=== PATIENT | male | born 1995 | race Caucasian/White ===

== ENCOUNTER 2016-11-02 03:22 | Emergency (ER) | payer BC, OTHER ==
--- NOTE | 2016-11-02 03:33 | EDPHY ---
H & P Stated Complaint: fall into pillar lat to r eyebrow HPI/ROS: HPI CHIEF COMPLAINT: Alcohol Intoxication, head laceration HISTORY OF PRESENT ILLNESS: This patient very pleasant 21-year-old male, he has been drinking alcohol this evening, he tells me he had 8 beers and 1 shot of liquor, tells me was intoxicated however much more sober nail he fell into the corner of a wall striking his right eyebrow/head against the edge of the pillar. He denies headache. Denies vomiting. He sustained a right eyebrow laceration. He does tell me his tetanus shot is up-to-date. Denies any other areas of trauma specifically neck pain. Denies LOC. Past Medical History: Denies significant medical history Past Surgical History: Denies significant surgical history Social History: [employer] student, occasional alcohol use, denies drugs or tobacco products Family History: Noncontributory ROS REVIEW OF SYSTEMS: A comprehensive 10 point review of systems is otherwise negative aside from elements mentioned in the history of present illness. Exam Constitutional triage nursing summary reviewed, vital signs reviewed, smells of alcohol Eyes normal conjunctivae and sclera, horizontal beating nystagmus consistent acute alcohol intoxication, otherwise pupils equal and react to light HENT head/neck: 6cm horizontally oriented eyebrow laceration right eyebrow, midface stable, no crepitus, orbital rim intact, no midline neck pain,, moist mucus membranes, no epistaxis, neck supple/ no meningismus, no raccoon eyes. Respiratory clear to auscultation bilaterally, normal breath sounds, no respiratory distress, no wheezing. Cardiovascular rate normal, regular rhythm, no murmur, no edema, distal pulses normal. Gastrointestinal soft, non-tender, no rebound, no guarding, normal bowel sounds, no distension, no pulsatile mass. Genitourinary no CVA tenderness. Musculoskeletal no midline vertebral tenderness, full range of motion, no calf swelling, no tenderness of extremities, no meningismus, good pulses, neurovascularly intact. Skin pink, warm, & dry, no rash, skin atraumatic. Neurologic sleepy, intoxicated with alcohol,, alert and oriented x 3, AAOx3, moves all 4 extremities equally, motor intact, sensory intact, CN II-XII intact , , normal vision, normal speech. Psychiatric normal mood/affect. Heme/Lymph/Immune no lymphadenopathy. Differential Diagnosis: Includes but is not limited to in a particular alcohol intoxication, facial laceration specifically right eyebrow laceration, head trauma, concussion, closed-head injury, intracranial bleed, skull fracture, facial fracture Medical Decision Making: This patient will have a CT scan of his head to rule out significant trauma given alcohol intoxication and large eyebrow laceration. The eyebrow laceration will need to be repaired. Re-evaluation: CT scan of the head without contrast for trauma The results of the study are negative for anything acute The study was read by Dr. Pretty. I viewed the images myself on the PACS system. Laceration Repair Procedure: Verbal Consent was obtained, Under sterile conditions, The patient had lidocaine with epinephrine used approximately _ 7ccs to local anesthetize the Right eyebrow 6cm Laceration. The wound was copiously irrigated with sterile fluid, the wound was explored for foreign bodies there were none visualized, the wound was explored with a sterile glove to the base. There are no deep structures involved, including no arterial injury. SIX 6.O interrupted Sutures were placed in this patient's laceration. He had good close approximation of the wound edges. He Tolerated this well. Patient is not vomiting here is neurological exam is unremarkable CT scan is normal and no significant trauma. The right eyebrow laceration was repaired by myself. He tolerated this well. Patient understands to watch for signs of infection, and have sutures removed in 7 days. Source: Patient - Personal History Current Tetanus/Diphtheria Vaccine: Yes Current Tetanus Diphtheria and Acellular Pertussis (TDAP): Yes - Medical/Surgical History Hx Asthma: No Hx Chronic Respiratory Disease: No Hx Diabetes: No Hx Cardiac Disease: No Hx Renal Disease: No Hx Cirrhosis: No Hx Alcoholism: No Hx HIV/AIDS: No Hx Splenectomy or Spleen Trauma: No Other PMH: plate to forarm - Social History Smoking Status: Current some day smoker Constitutional: Initial Vital Signs Temperature (C) 36.8 C 11/02/16 03:27 Heart Rate 100 11/02/16 03:27 Respiratory Rate 18 11/02/16 03:27 Blood Pressure 119/61 11/02/16 03:27 O2 Sat (%) 94 11/02/16 03:27 O2 Delivery Mode Room Air Allergies/Adverse Reactions: No Known Allergies Allergy (Unverified 11/02/16 03:27) Home Medications: Medication Instructions Recorded NK [No Known Home Meds] 11/02/16 Departure - Departure Disposition: Home, Routine, Self-Care Clinical Impression: Laceration Alcoholic intoxication Qualifiers: Complication of substance-induced condition: uncomplicated Qualifier Code: ( F10.120) Alcohol abuse with intoxication, uncomplicated Injury of head Qualifiers: Encounter type: initial encounter Qualifier Code: (S09.90XA) Unspecified injury of head, initial encounter Condition: Good Instructions: Concussion (ED), Head Injury (ED), Laceration (ED), Care For Your Stitches (ED) Additional Instructions: 1. please keep your wound clean, dry and protected. 2. you need to have her sutures removed in 7 days. 3.Watch for signs of infection. 4. you may come back here to have her sutures removed or at your [facility] clinic. Referrals: NONE *PRIMARY CARE P,. [Primary Care Provider] - As per Instructions
[2016-11-02 04:46] VITALS: BP 120/63; PULSE 84; RESP 16; TEMP 97.7; O2SAT 92
--- NOTE | 2016-11-02 09:13 | CT ---
CT Head (Without Contrast) Indication: Trauma. Technique: Standard noncontrast head CT protocol utilizing 5 mm thick collimated slices and field of view of 23 cm. Dose reduction techniques were utilized. Findings: A right supraorbital scalp laceration has minimal associated soft tissue swelling. No under lying acute skull or facial fracture. No intracranial hemorrhage, contusion, swelling, or extraaxial fluid collection. The ventricles are normal caliber and midline. The rodrigues and white matter has normal attenuation. The paranasal sinuses are clear except for minimal mucosal thickening in the maxillary, ethmoid, and sphenoid air cells. Trace layering fluid is present in the left maxillary sinus. Impression: 1. No acute intracranial hemorrhage or contusion. 2. No acute skull or facial fracture. 3. Right supraorbital scalp laceration. The study was performed as an emergency on-call case and discussed by telephone with Dr. Simeon at 4 a.m. November 02, 2016. The final interpretation is concordant with the original communication.
== END 2016-11-02 04:55 | disposition home or self-care (01) ==
PROC: 0HQ1XZZ Repair Face Skin, External Approach (ICD-10-PCS; principal; 2016-11-02)
DX: S09.90XA Unspecified injury of head, initial encounter (principal); F10.120 Alcohol abuse with intoxication, uncomplicated; S01.111A Laceration without foreign body of right eyelid and periocular area, initial encounter; F17.200 Nicotine dependence, unspecified, uncomplicated; W18.09XA Striking against other object with subsequent fall, initial encounter